=== PATIENT | female | born 1955 ===

== ENCOUNTER 2023-03-07 10:28 | Inpatient (IN) | payer MEDICAID ==
[~2023-03-07] VITALS: Ht 172.7 cm; Wt 69.1 kg
[2023-03-07 11:33] LABS: COVID AG,FIA SOURCE NASAL SWAB
[2023-03-07 11:37] LABS: ANION GAP 16 mmol/L (8-16); CALCIUM, TOTAL 10.6 mg/dL (8.8-10.5); CARBON DIOXIDE 22 mmol/L (22-29); CHLORIDE 98 mmol/L (98-107); CREATININE 1.38 mg/dL (0.60-1.30); EOSINOPHILS % (AUTO) 0.3 % (1.0-6.0); GLOMERULAR FILTR. RATE CALC 38 mL/min (>60); GLUCOSE,RANDOM 84 mg/dL (70-110); HEMATOCRIT 38.3 % (36-46); HEMOGLOBIN 12.9 g/dL (12.0-16.0); LYMPHOCYTES # (AUTO) 1.7 K/uL (1.0-4.8); LYMPHOCYTES % (AUTO) 20.2 % (22.0-44.0); MEAN CORPUSCULAR HEMOGLOBIN 29.6 pg (26.0-34.0); MEAN CORPUSCULAR HGB CONC 33.5 G/dL (31.0-37.0); MEAN CORPUSCULAR VOLUME 88 fL (80-100); MONOCYTES % (AUTO) 12.1 % (2.0-9.0); NEUTROPHILS # (AUTO) 5.7 K/uL (1.8-7.7); NEUTROPHILS % (AUTO) 66.4 % (40.0-70.0); PLATELET COUNT (AUTO) 371 K/uL (150-450); POTASSIUM 3.1 mmol/L (3.5-5.1); RED BLOOD CELL COUNT(AUTO) 4.34 MIL/uL (4.00-5.20); RED CELL DISTRIBUTION WIDTH 15.3 % (11.5-14.5); SODIUM SERUM 136 mmol/L (136-145); UREA NITROGEN, BLOOD 21 mg/dL (7-18); WHITE BLOOD COUNT (AUTO) 8.6 K/uL (4.5-11.0)
[2023-03-07 11:42] LABS: ALANINE AMINOTRANSFERASE 13 U/L (12-78); ALBUMIN 3.9 g/dL (3.4-5.0); ALKALINE PHOSPHATASE 127 U/L (46-116); ASPARTATE AMINOTRANSFERASE 27 U/L (15-37); BILIRUBIN,TOTAL 0.6 mg/dL (0.1-1.0); TOTAL PROTEIN, SERUM 7.3 g/dL (6.4-8.2)
[2023-03-07 11:53] LABS: ALCOHOL, BLOOD (SERUM) < 3 mg/dL (0-10)
[2023-03-07 12:04] LABS: SARS-COV2 (COVID) ANTIGEN,FIA Negative (Negative)
[2023-03-07] MEDS ORDERED: POTASSIUM CHLORIDE 20 MEQ ER TABLET PO ONE (12:30)
[2023-03-07 13:17] LABS: ALCOHOL, URINE DRUG SCREEN NEGATIVE (NEGATIVE); AMPHET/METH SCREEN,URINE NEGATIVE (NEGATIVE); BARBITURATE SCREEN, URINE NEGATIVE (NEGATIVE); BENZODIAZEPINES SCREEN,URINE NEGATIVE (NEGATIVE); CANNABINOID SCREEN,URINE NEGATIVE (NEGATIVE); COCAINE SCREEN,URINE NEGATIVE (NEGATIVE); METHADONE SCREEN, URINE NEGATIVE (NEGATIVE); OPIATE SCREEN,URINE NEGATIVE (NEGATIVE); PHENCYCLIDINE SCREEN,URINE NEGATIVE (NEGATIVE)
[2023-03-07 13:23] LABS: APPEARANCE,URINE CLEAR (CLEAR); BILIRUBIN,URINE NEGATIVE (NEGATIVE); COLOR,URINE YELLOW (YELLOW); GLUCOSE, URINE (UA) NEGATIVE (NEGATIVE); LEUKOCYTE ESTERASE ,URINE MODERATE (NEGATIVE); NITRATE,URINE NEGATIVE (NEGATIVE); OCCULT BLOOD,URINE NEGATIVE (NEGATIVE); PH,URINE 5.5 (5.0-8.0); PROTEIN,URINE TRACE mg/dL (NEGATIVE); SPECIFIC GRAVITIY, URINE 1.018 (1.003-1.030); UROBILINOGEN,URINE <=1.0 mg/dL (<=1.0)
[2023-03-07 13:24] LABS: PH,URINE DRUG SCREEN 5.5 (5.0-8.0)
[2023-03-07] MEDS ORDERED: QUEtiapine FUMARATE 100 MG TABLET PO PRN (13:45)
[2023-03-07 13:47] LABS: BACTERIA,URINE Few /HPF (None Seen); RBC,URINE None Seen /HPF (0-2); SQUAMOUS EPITHELIAL CELL,UR Few /LPF (None Seen)
[2023-03-07] MEDS ORDERED: CEPHALEXIN MONOHYDRATE 500 MG CAPSULE PO ONE (14:00)
[2023-03-07] MEDS: LORazepam 2 MG TABLET PO PRN (14:05)
[2023-03-07 23:11] VITALS: BP 124/64; PULSE 90; RESP 18; TEMP 97.7
[2023-03-08] MEDS ORDERED: ALBUTEROL SULFATE HFA 90 MCG/PUFF 8 GM INHALER IH PRN (07:15)
[2023-03-08] MEDS ORDERED: PETROLATUM,WHITE 28 GM JELLY TP PRN (07:15)
[2023-03-08] MEDS ORDERED: GuaiFENesin/D-METHORPHAN [SUGAR-FREE] 200-20MG/10 ML SYRUP UDCUP PO PRN (07:15)
[2023-03-08] MEDS ORDERED: DOCUSATE SODIUM 100 MG CAPSULE PO PRN (07:15)
[2023-03-08] MEDS ORDERED: CloNIDine HCL 0.1 MG TABLET PO PRN (07:15)
[2023-03-08] MEDS ORDERED: ONDANSETRON HCL 4 MG TABLET PO PRN (07:15)
[2023-03-08] MEDS ORDERED: MAGNESIUM HYDROXIDE SUSPENSION 30 ML UDCUP PO PRN (07:15)
[2023-03-08] MEDS ORDERED: ACETAMINOPHEN 325 MG TABLET PO PRN (07:15)
[2023-03-08] MEDS ORDERED: MAG HYDROX/ALUMINUM HYD/SIMETH ES 30 ML SUSPENSION UDCUP PO PRN (07:15)
[2023-03-08] MEDS ORDERED: NICOTINE 14 MG/24 HOUR PATCH TD PRN (07:15)
[2023-03-08] MEDS ORDERED: LOPERAMIDE HCL 2 MG CAPSULE PO PRN (07:15)
[2023-03-08] MEDS: CEPHALEXIN MONOHYDRATE 500 MG CAPSULE PO SCH ×3 (09:54→17:39)
[2023-03-08 10:25] VITALS: BP 106/78; PULSE 86; RESP 18; TEMP 97
[2023-03-08] MEDS: RisperiDONE 0.5 MG TABLET PO SCH (20:44)
[2023-03-08] MEDS: LORazepam 2 MG TABLET PO PRN (20:44)
[2023-03-08 23:00] VITALS: RESP 18
[2023-03-09] MEDS: CEPHALEXIN MONOHYDRATE 500 MG CAPSULE PO SCH ×3 (08:56→17:00)
[2023-03-09] MEDS: RisperiDONE 0.5 MG TABLET PO SCH ×2 (08:56→20:42)
[2023-03-09 09:58] VITALS: BP 105/70; PULSE 105; RESP 18; TEMP 97.4
[2023-03-09 22:48] VITALS: RESP 18
[2023-03-10 07:59] LABS: CHOL/HDL RATIO 6.8 (3.9-5.7)
[2023-03-10 08:03] VITALS: BP 117/70; PULSE 79; RESP 18; TEMP 97.9
[2023-03-10 08:22] LABS: THYROID STIMULATING HORMONE 0.86 uIU/mL (0.36-3.74)
[2023-03-10] MEDS: CEPHALEXIN MONOHYDRATE 500 MG CAPSULE PO SCH ×3 (10:18→18:43)
[2023-03-10] MEDS: RisperiDONE 0.5 MG TABLET PO SCH (10:20)
[2023-03-10 15:38] LABS: POTASSIUM 4.3 mmol/L (3.5-5.1)
[2023-03-10 20:30] VITALS: BP 97/60; PULSE 75; RESP 18; TEMP 97
[2023-03-10] MEDS: SIMVASTATIN 10 MG TABLET PO SCH (21:00)
[2023-03-10] MEDS: RisperiDONE 1 MG TABLET PO SCH (21:00)
[2023-03-11 08:00] VITALS: BP 109/65; PULSE 84; RESP 20; TEMP 97.4
[2023-03-11] MEDS: RisperiDONE 1 MG TABLET PO SCH ×2 (09:14→20:55)
[2023-03-11] MEDS: CEPHALEXIN MONOHYDRATE 500 MG CAPSULE PO SCH ×3 (09:14→16:23)
[2023-03-11] MEDS: SIMVASTATIN 10 MG TABLET PO SCH (20:55)
[2023-03-11] MEDS: ZOLPIDEM TARTRATE 10 MG TABLET PO PRN (21:30)
[2023-03-11 22:02] VITALS: BP 118/62; PULSE 75; RESP 18; TEMP 97.8
[2023-03-12] MEDS: RisperiDONE 1 MG TABLET PO SCH ×2 (09:03→20:40)
[2023-03-12] MEDS: CEPHALEXIN MONOHYDRATE 500 MG CAPSULE PO SCH ×3 (09:03→16:22)
[2023-03-12 18:53] VITALS: BP 115/67; PULSE 79; RESP 19; TEMP 97.6
[2023-03-12] MEDS: SIMVASTATIN 10 MG TABLET PO SCH (20:40)
[2023-03-12] MEDS: ZOLPIDEM TARTRATE 10 MG TABLET PO PRN (20:40)
[2023-03-12 22:08] VITALS: BP 153/60; PULSE 71; RESP 18; TEMP 97.8
[2023-03-13] MEDS: RisperiDONE 1 MG TABLET PO SCH ×2 (09:04→20:44)
[2023-03-13 09:41] VITALS: BP 106/63; PULSE 63; RESP 18; TEMP 97.8
[2023-03-13] MEDS: SIMVASTATIN 10 MG TABLET PO SCH (20:44)
[2023-03-13] MEDS: ZOLPIDEM TARTRATE 10 MG TABLET PO PRN (21:36)
[2023-03-13 21:55] VITALS: RESP 18
[2023-03-14] MEDS: RisperiDONE 1 MG TABLET PO SCH ×2 (08:47→21:22)
[2023-03-14 10:31] VITALS: BP 106/57; PULSE 77; RESP 16; TEMP 97.8
[2023-03-14 21:12] VITALS: BP 111/58; PULSE 64; RESP 17; TEMP 98.3
[2023-03-14] MEDS: ZOLPIDEM TARTRATE 10 MG TABLET PO PRN (21:22)
[2023-03-14] MEDS: SIMVASTATIN 10 MG TABLET PO SCH (21:22)
[2023-03-15] MEDS: RisperiDONE 1 MG TABLET PO SCH ×2 (08:44→21:43)
[2023-03-15 09:56] VITALS: BP 140/78; PULSE 81; RESP 17; TEMP 97.7
[2023-03-15 20:24] VITALS: BP 102/77; PULSE 72; RESP 18; TEMP 97.1
[2023-03-15] MEDS: ZOLPIDEM TARTRATE 10 MG TABLET PO PRN (21:20)
[2023-03-15] MEDS: SIMVASTATIN 10 MG TABLET PO SCH (21:20)
[2023-03-16 08:38] VITALS: BP 114/65; PULSE 73; RESP 16; TEMP 97.1
[2023-03-16] MEDS: RisperiDONE 1 MG TABLET PO SCH ×2 (09:32→20:53)
[2023-03-16 20:42] VITALS: BP 126/79; PULSE 79; RESP 18; TEMP 97.4
[2023-03-16] MEDS: SIMVASTATIN 10 MG TABLET PO SCH (20:52)
[2023-03-16] MEDS: ZOLPIDEM TARTRATE 10 MG TABLET PO PRN (20:53)
[2023-03-17] MEDS: RisperiDONE 1 MG TABLET PO SCH ×2 (09:45→20:46)
[2023-03-17 10:53] VITALS: BP 114/47; PULSE 76; RESP 18; TEMP 97.8
[2023-03-17] MEDS: ZOLPIDEM TARTRATE 10 MG TABLET PO PRN (20:46)
[2023-03-17] MEDS: SIMVASTATIN 10 MG TABLET PO SCH (20:46)
[2023-03-17 20:47] VITALS: BP 140/66; PULSE 75; RESP 17; TEMP 98.3
[2023-03-18 08:00] VITALS: BP 116/61; PULSE 77; RESP 17; TEMP 97.6
[2023-03-18] MEDS: RisperiDONE 1 MG TABLET PO SCH ×2 (08:31→20:59)
[2023-03-18] MEDS: ZOLPIDEM TARTRATE 10 MG TABLET PO PRN (20:59)
[2023-03-18] MEDS: SIMVASTATIN 10 MG TABLET PO SCH (20:59)
[2023-03-18 21:04] VITALS: RESP 18
[2023-03-19] MEDS: RisperiDONE 1 MG TABLET PO SCH ×2 (08:42→21:31)
[2023-03-19 09:00] VITALS: BP 120/60; PULSE 73; RESP 18; TEMP 97.7
[2023-03-19 20:45] VITALS: BP 120/63; PULSE 79; RESP 17; TEMP 98
[2023-03-19 21:00] VITALS: BP 12/63; PULSE 79; RESP 18; TEMP 98
[2023-03-19] MEDS: ZOLPIDEM TARTRATE 10 MG TABLET PO PRN (21:31)
[2023-03-19] MEDS: SIMVASTATIN 10 MG TABLET PO SCH (21:31)
[2023-03-20] MEDS: RisperiDONE 1 MG TABLET PO SCH ×2 (09:58→20:46)
[2023-03-20 10:48] VITALS: BP 118/69; PULSE 78; RESP 18; TEMP 98
[2023-03-20] MEDS: ZOLPIDEM TARTRATE 10 MG TABLET PO PRN (20:46)
[2023-03-20] MEDS: SIMVASTATIN 10 MG TABLET PO SCH (20:46)
[2023-03-20 20:58] VITALS: RESP 18
[2023-03-21] MEDS: RisperiDONE 1 MG TABLET PO SCH ×2 (08:33→21:19)
[2023-03-21 20:15] VITALS: BP 125/69; PULSE 71; RESP 18; TEMP 97.6
[2023-03-21 21:17] VITALS: BP 126/70; PULSE 72; RESP 18; TEMP 97.7
[2023-03-21] MEDS: SIMVASTATIN 10 MG TABLET PO SCH (21:19)
[2023-03-21 22:17] VITALS: RESP 18
[2023-03-22] MEDS: RisperiDONE 1 MG TABLET PO SCH ×2 (09:07→21:18)
[2023-03-22 10:04] VITALS: BP 109/57; PULSE 70; RESP 18; TEMP 97.9
[2023-03-22] MEDS: DIVALPROEX SODIUM 500 MG DR TABLET PO SCH ×2 (12:30→21:17)
[2023-03-22 20:40] VITALS: BP 110/74; PULSE 79; RESP 17; TEMP 98.5
[2023-03-22] MEDS: ZOLPIDEM TARTRATE 10 MG TABLET PO PRN (21:18)
[2023-03-22] MEDS: SIMVASTATIN 10 MG TABLET PO SCH (21:18)
[2023-03-23] MEDS: DIVALPROEX SODIUM 500 MG DR TABLET PO SCH ×2 (08:46→20:52)
[2023-03-23] MEDS: RisperiDONE 1 MG TABLET PO SCH ×2 (08:46→20:53)
[2023-03-23 09:54] VITALS: BP 112/62; PULSE 74; RESP 18; TEMP 97.5
[2023-03-23] MEDS: ZOLPIDEM TARTRATE 10 MG TABLET PO PRN (20:52)
[2023-03-23] MEDS: SIMVASTATIN 10 MG TABLET PO SCH (20:53)
[2023-03-23 22:03] VITALS: RESP 19
[2023-03-24 09:00] VITALS: BP 123/56; PULSE 78; RESP 20; TEMP 97.7
[2023-03-24] MEDS: RisperiDONE 1 MG TABLET PO SCH ×2 (09:37→21:00)
[2023-03-24 09:38] VITALS: BP 121/87; PULSE 71; RESP 17; TEMP 98
[2023-03-24] MEDS: DIVALPROEX SODIUM 500 MG DR TABLET PO SCH ×2 (09:38→21:00)
[2023-03-24] MEDS: IBUPROFEN 400 MG TABLET PO PRN (09:38)
[2023-03-24 10:38] VITALS: BP 118/78; PULSE 78; RESP 18; TEMP 97.6
[2023-03-24] MEDS: SIMVASTATIN 10 MG TABLET PO SCH (21:00)
[2023-03-24] MEDS: ZOLPIDEM TARTRATE 10 MG TABLET PO PRN (21:00)
[2023-03-24 21:16] VITALS: BP 107/69; PULSE 73; RESP 18; TEMP 97.8
[2023-03-25 08:40] VITALS: BP 99/68; PULSE 71; RESP 18; TEMP 97.8
[2023-03-25] MEDS: RisperiDONE 1 MG TABLET PO SCH ×2 (09:29→20:59)
[2023-03-25] MEDS: DIVALPROEX SODIUM 500 MG DR TABLET PO SCH ×2 (09:29→20:59)
[2023-03-25 18:41] VITALS: BP 141/76; PULSE 97; RESP 18; TEMP 98.3
[2023-03-25] MEDS: IBUPROFEN 400 MG TABLET PO PRN (18:41)
[2023-03-25 19:41] VITALS: RESP 20
[2023-03-25 20:36] VITALS: BP 101/69; PULSE 78; RESP 18; TEMP 98.1
[2023-03-25] MEDS: SIMVASTATIN 10 MG TABLET PO SCH (20:59)
[2023-03-25] MEDS: ZOLPIDEM TARTRATE 10 MG TABLET PO PRN (21:00)
[2023-03-26 07:05] VITALS: BP 128/81; PULSE 86; RESP 19; TEMP 97.2
[2023-03-26] MEDS: IBUPROFEN 400 MG TABLET PO PRN (07:09)
[2023-03-26] MEDS: DIVALPROEX SODIUM 500 MG DR TABLET PO SCH ×2 (08:38→20:59)
[2023-03-26] MEDS: RisperiDONE 1 MG TABLET PO SCH ×2 (08:39→20:58)
[2023-03-26] MEDS: SIMVASTATIN 10 MG TABLET PO SCH (20:59)
[2023-03-26 21:44] VITALS: BP 117/66; PULSE 69; RESP 18; TEMP 97.8
[2023-03-27 09:21] VITALS: BP 108/51; PULSE 76; RESP 17; TEMP 97.2
[2023-03-27] MEDS: IBUPROFEN 400 MG TABLET PO PRN (09:26)
[2023-03-27] MEDS: DIVALPROEX SODIUM 500 MG DR TABLET PO SCH ×2 (09:26→20:44)
[2023-03-27] MEDS: RisperiDONE 1 MG TABLET PO SCH ×2 (09:26→20:44)
[2023-03-27] MEDS: SIMVASTATIN 10 MG TABLET PO SCH (20:44)
[2023-03-27 21:28] VITALS: BP 139/76; PULSE 82; RESP 19; TEMP 98
[2023-03-28] MEDS: DIVALPROEX SODIUM 500 MG DR TABLET PO SCH ×2 (09:11→20:36)
[2023-03-28] MEDS: RisperiDONE 1 MG TABLET PO SCH ×2 (09:11→20:37)
[2023-03-28 10:56] VITALS: BP 127/97; PULSE 97; RESP 18; TEMP 97.7
[2023-03-28] MEDS: VALPROIC ACID 250 MG CAPSULE PO SCH ×2 (11:31→20:36)
[2023-03-28 20:26] VITALS: BP 106/69; PULSE 79; RESP 18; TEMP 97.2
[2023-03-28] MEDS: SIMVASTATIN 10 MG TABLET PO SCH (20:36)
[2023-03-29] MEDS: VALPROIC ACID 250 MG CAPSULE PO SCH ×2 (08:19→20:51)
[2023-03-29] MEDS: DIVALPROEX SODIUM 500 MG DR TABLET PO SCH ×2 (08:19→20:51)
[2023-03-29] MEDS: RisperiDONE 1 MG TABLET PO SCH ×2 (08:21→20:51)
[2023-03-29 09:22] VITALS: BP 123/80; PULSE 75; RESP 18; TEMP 97.3
[2023-03-29] MEDS: IBUPROFEN 400 MG TABLET PO PRN (09:59)
[2023-03-29 10:00] VITALS: BP 136/79; PULSE 78; RESP 18; TEMP 97.6
[2023-03-29] MEDS: SIMVASTATIN 10 MG TABLET PO SCH (20:50)
[2023-03-29 21:47] VITALS: BP 106/69; PULSE 77; RESP 19; TEMP 97.8
[2023-03-30] MEDS: VALPROIC ACID 250 MG CAPSULE PO SCH ×2 (09:00→20:52)
[2023-03-30] MEDS: RisperiDONE 1 MG TABLET PO SCH ×2 (09:00→20:52)
[2023-03-30 11:03] VITALS: BP 112/58; PULSE 71; RESP 18; TEMP 96.6
[2023-03-30] MEDS: SIMVASTATIN 10 MG TABLET PO SCH (20:52)
[2023-03-30 21:06] VITALS: BP 111/76; PULSE 81; RESP 18; TEMP 98
[2023-03-31] MEDS: VALPROIC ACID 250 MG CAPSULE PO SCH ×2 (09:14→21:04)
[2023-03-31] MEDS: RisperiDONE 1 MG TABLET PO SCH ×2 (09:15→21:05)
[2023-03-31 10:46] VITALS: BP 120/67; PULSE 70; RESP 19; TEMP 97.8
[2023-03-31] MEDS: SIMVASTATIN 10 MG TABLET PO SCH (21:05)
[2023-03-31 21:38] VITALS: BP 129/79; PULSE 17; RESP 18; TEMP 97.5
[2023-04-01] MEDS: VALPROIC ACID 250 MG CAPSULE PO SCH ×2 (08:34→20:26)
[2023-04-01] MEDS: RisperiDONE 1 MG TABLET PO SCH ×2 (08:34→20:26)
[2023-04-01 10:17] VITALS: BP 157/77; PULSE 76; RESP 19; TEMP 98
[2023-04-01] MEDS: SIMVASTATIN 10 MG TABLET PO SCH (20:26)
[2023-04-01 20:36] VITALS: BP 110/59; PULSE 76; RESP 18; TEMP 97.8
[2023-04-02] MEDS: VALPROIC ACID 250 MG CAPSULE PO SCH ×2 (10:11→20:30)
[2023-04-02] MEDS: RisperiDONE 1 MG TABLET PO SCH ×2 (10:12→20:30)
[2023-04-02 11:24] VITALS: BP 115/52; PULSE 74; RESP 18; TEMP 97.5
[2023-04-02] MEDS: SIMVASTATIN 10 MG TABLET PO SCH (20:30)
[2023-04-02] MEDS: ZOLPIDEM TARTRATE 10 MG TABLET PO PRN (21:17)
[2023-04-02 21:33] VITALS: BP 116/60; PULSE 74; RESP 18; TEMP 97.3
[2023-04-03 08:46] VITALS: BP 107/67; PULSE 73; RESP 20; TEMP 97.3
[2023-04-03] MEDS: VALPROIC ACID 250 MG CAPSULE PO SCH ×2 (10:24→20:25)
[2023-04-03] MEDS: RisperiDONE 1 MG TABLET PO SCH ×2 (10:24→20:25)
[2023-04-03] MEDS: SIMVASTATIN 10 MG TABLET PO SCH (20:25)
[2023-04-03] MEDS: ZOLPIDEM TARTRATE 10 MG TABLET PO PRN (21:26)
[2023-04-03 22:40] VITALS: BP 107/56; PULSE 80; RESP 18; TEMP 98.4
[2023-04-04 02:03] LABS: COVID AG,FIA SOURCE NASAL SWAB
[2023-04-04 03:13] LABS: SARS-COV2 (COVID) ANTIGEN,FIA Positive (Negative)
[2023-04-04] MEDS: RisperiDONE 1 MG TABLET PO SCH ×2 (08:47→20:51)
[2023-04-04] MEDS: VALPROIC ACID 250 MG CAPSULE PO SCH ×2 (08:49→20:51)
[2023-04-04 09:07] VITALS: BP 103/58; PULSE 72; RESP 18; TEMP 98.7
[2023-04-04 12:16] VITALS: TEMP 97.9
[2023-04-04 17:41] VITALS: TEMP 98.4
[2023-04-04 20:09] VITALS: BP 120/62; PULSE 79; RESP 18; TEMP 99.4
[2023-04-04] MEDS: IBUPROFEN 400 MG TABLET PO PRN (20:09)
[2023-04-04 20:10] VITALS: BP 120/62; PULSE 79; TEMP 99.4
[2023-04-04] MEDS: SIMVASTATIN 10 MG TABLET PO SCH (20:52)
[2023-04-04 21:09] VITALS: TEMP 98
[2023-04-05] VITALS (7 sets, daily range): BP systolic 93–97; BP diastolic 52–58; PULSE 76–78; RESP 17–18; TEMP 97.6–98.4
[2023-04-05] MEDS: VALPROIC ACID 250 MG CAPSULE PO SCH ×2 (09:12→21:26)
[2023-04-05] MEDS: RisperiDONE 1 MG TABLET PO SCH ×2 (09:12→21:27)
[2023-04-05] MEDS: SIMVASTATIN 10 MG TABLET PO SCH (21:27)
[2023-04-06 00:15] VITALS: TEMP 97.9
[2023-04-06 06:38] VITALS: TEMP 98.3
[2023-04-06 08:08] VITALS: BP 122/64; PULSE 78; RESP 18; TEMP 98.5
[2023-04-06] MEDS: VALPROIC ACID 250 MG CAPSULE PO SCH ×2 (09:07→20:58)
[2023-04-06] MEDS: IBUPROFEN 400 MG TABLET PO PRN (09:08)
[2023-04-06] MEDS: RisperiDONE 1 MG TABLET PO SCH ×2 (09:08→20:59)
[2023-04-06 11:55] VITALS: TEMP 98.1
[2023-04-06 16:20] VITALS: TEMP 98
[2023-04-06 20:07] VITALS: BP 133/64; PULSE 75; RESP 18; TEMP 97.9
[2023-04-06] MEDS: SIMVASTATIN 10 MG TABLET PO SCH (20:59)
[2023-04-06] MEDS: ZOLPIDEM TARTRATE 10 MG TABLET PO PRN (21:00)
[2023-04-07] VITALS (7 sets, daily range): BP systolic 95–116; BP diastolic 45–78; PULSE 69–84; RESP 17–18; TEMP 97.5–98.7
[2023-04-07] MEDS: RisperiDONE 1 MG TABLET PO SCH ×2 (10:34→21:08)
[2023-04-07] MEDS: IBUPROFEN 400 MG TABLET PO PRN ×2 (10:34→21:10)
[2023-04-07] MEDS: VALPROIC ACID 250 MG CAPSULE PO SCH ×2 (10:36→21:07)
[2023-04-07] MEDS: SIMVASTATIN 10 MG TABLET PO SCH (21:08)
[2023-04-07] MEDS: ZOLPIDEM TARTRATE 10 MG TABLET PO PRN (21:10)
[2023-04-08 00:02] VITALS: RESP 17; TEMP 97.8
[2023-04-08 04:29] VITALS: RESP 18; TEMP 97.7
[2023-04-08] MEDS: VALPROIC ACID 250 MG CAPSULE PO SCH ×2 (08:16→21:05)
[2023-04-08] MEDS: RisperiDONE 1 MG TABLET PO SCH ×2 (08:16→21:05)
[2023-04-08 08:19] VITALS: BP 125/54; PULSE 66; RESP 17; TEMP 97.3
[2023-04-08] MEDS ORDERED: INFLUENZA VIRUS VACCINE QVS 2023-24 (6MO+)/PF 60 MCG/0.5 ML SYRINGE IM. ONE (11:15)
[2023-04-08 12:51] VITALS: RESP 18; TEMP 98.6
[2023-04-08 16:00] VITALS: RESP 18; TEMP 97.5
[2023-04-08 20:13] VITALS: BP 116/62; PULSE 85; RESP 18; TEMP 97.2
[2023-04-08] MEDS: ZOLPIDEM TARTRATE 10 MG TABLET PO PRN (21:05)
[2023-04-08] MEDS: SIMVASTATIN 10 MG TABLET PO SCH (21:05)
[2023-04-09] VITALS (7 sets, daily range): BP systolic 108–109; BP diastolic 58–65; PULSE 65–85; RESP 16–18; TEMP 97–97.8
[2023-04-09] MEDS: VALPROIC ACID 250 MG CAPSULE PO SCH ×2 (08:53→21:08)
[2023-04-09] MEDS: RisperiDONE 1 MG TABLET PO SCH ×2 (08:53→21:08)
[2023-04-09] MEDS: ZOLPIDEM TARTRATE 10 MG TABLET PO PRN (21:08)
[2023-04-09] MEDS: SIMVASTATIN 10 MG TABLET PO SCH (21:08)
[2023-04-10 00:05] VITALS: RESP 18
[2023-04-10 04:44] VITALS: RESP 18
[2023-04-10 08:06] VITALS: BP 104/61; PULSE 60; RESP 18; TEMP 97.7
[2023-04-10] MEDS: RisperiDONE 1 MG TABLET PO SCH ×2 (09:38→20:39)
[2023-04-10] MEDS: VALPROIC ACID 250 MG CAPSULE PO SCH ×2 (09:39→20:38)
[2023-04-10 13:09] VITALS: RESP 18; TEMP 98.3
[2023-04-10 16:12] VITALS: RESP 18; TEMP 97.5
[2023-04-10 20:16] VITALS: BP 105/65; PULSE 61; RESP 16; TEMP 97.2
[2023-04-10] MEDS: SIMVASTATIN 10 MG TABLET PO SCH (20:38)
[2023-04-10] MEDS: ZOLPIDEM TARTRATE 10 MG TABLET PO PRN (20:39)
[2023-04-11 00:08] VITALS: RESP 18
[2023-04-11 04:29] VITALS: RESP 16
[2023-04-11 08:18] VITALS: BP 104/62; PULSE 73; RESP 17; TEMP 97.5
[2023-04-11] MEDS: RisperiDONE 1 MG TABLET PO SCH ×2 (10:01→21:00)
[2023-04-11] MEDS: VALPROIC ACID 250 MG CAPSULE PO SCH ×2 (10:01→21:00)
[2023-04-11 13:26] VITALS: RESP 18; TEMP 97.5
[2023-04-11 18:12] VITALS: RESP 18; TEMP 97.6
[2023-04-11 20:04] VITALS: BP 107/66; PULSE 76; RESP 18; TEMP 97.4
[2023-04-11] MEDS: SIMVASTATIN 10 MG TABLET PO SCH (21:00)
[2023-04-11] MEDS: ZOLPIDEM TARTRATE 10 MG TABLET PO PRN (21:00)
[2023-04-12 00:01] VITALS: RESP 18
[2023-04-12 04:05] VITALS: RESP 18
[2023-04-12] MEDS: RisperiDONE 1 MG TABLET PO SCH ×2 (08:29→20:10)
[2023-04-12] MEDS: VALPROIC ACID 250 MG CAPSULE PO SCH ×2 (08:29→20:10)
[2023-04-12 08:57] VITALS: BP 106/54; PULSE 61; RESP 18; TEMP 97.5
[2023-04-12 12:00] VITALS: RESP 18; TEMP 97.3
[2023-04-12 16:00] VITALS: RESP 16; TEMP 97.5
[2023-04-12] MEDS: SIMVASTATIN 10 MG TABLET PO SCH (20:10)
[2023-04-12 20:11] VITALS: BP 110/70; PULSE 81; RESP 17; TEMP 97.7
[2023-04-12] MEDS: ZOLPIDEM TARTRATE 10 MG TABLET PO PRN (22:36)
[2023-04-13 00:52] VITALS: RESP 18
[2023-04-13 05:03] VITALS: RESP 18
[2023-04-13 08:02] VITALS: BP 115/82; PULSE 82; RESP 18; TEMP 97.1
[2023-04-13] MEDS: VALPROIC ACID 250 MG CAPSULE PO SCH ×2 (09:04→21:25)
[2023-04-13] MEDS: RisperiDONE 1 MG TABLET PO SCH ×2 (09:04→21:25)
[2023-04-13 14:04] VITALS: BP 115/76; PULSE 90; RESP 18; TEMP 97.1
[2023-04-13 17:43] VITALS: BP 134/66; PULSE 83; RESP 20; TEMP 97.1
[2023-04-13 20:30] VITALS: BP 125/82; PULSE 84; RESP 18; TEMP 97.3
[2023-04-13] MEDS: SIMVASTATIN 10 MG TABLET PO SCH (21:25)
[2023-04-13] MEDS: ZOLPIDEM TARTRATE 10 MG TABLET PO PRN (21:26)
[2023-04-14] VITALS (7 sets, daily range): BP systolic 101–132; BP diastolic 64–72; PULSE 74–82; RESP 17–18; TEMP 96.9–97.4
[2023-04-14] MEDS: RisperiDONE 1 MG TABLET PO SCH ×2 (09:20→20:52)
[2023-04-14] MEDS: VALPROIC ACID 250 MG CAPSULE PO SCH ×2 (09:20→20:53)
[2023-04-14] MEDS: SIMVASTATIN 10 MG TABLET PO SCH (20:52)
[2023-04-14] MEDS: ZOLPIDEM TARTRATE 10 MG TABLET PO PRN (21:21)
[2023-04-15 00:05] VITALS: RESP 18; TEMP 97.6
[2023-04-15 05:32] VITALS: RESP 18; TEMP 97.4
[2023-04-15 06:22] LABS: BASOPHILS % (AUTO) 0.6 % (0.0-2.0); EOSINOPHILS % (AUTO) 1.8 % (1.0-6.0); HEMATOCRIT 38.2 % (36-46); HEMOGLOBIN 12.6 g/dL (12.0-16.0); LYMPHOCYTES # (AUTO) 2.4 K/uL (1.0-4.8); LYMPHOCYTES % (AUTO) 23.4 % (22.0-44.0); MEAN CORPUSCULAR HEMOGLOBIN 29.4 pg (26.0-34.0); MEAN CORPUSCULAR HGB CONC 32.9 G/dL (31.0-37.0); MEAN CORPUSCULAR VOLUME 89 fL (80-100); MONOCYTES # (AUTO) 1.9 K/uL (0.1-1.0); MONOCYTES % (AUTO) 19.3 % (2.0-9.0); NEUTROPHILS # (AUTO) 5.5 K/uL (1.8-7.7); NEUTROPHILS % (AUTO) 54.9 % (40.0-70.0); PLATELET COUNT (AUTO) 227 K/uL (150-450); RED BLOOD CELL COUNT(AUTO) 4.28 MIL/uL (4.00-5.20); RED CELL DISTRIBUTION WIDTH 15.2 % (11.5-14.5); WHITE BLOOD COUNT (AUTO) 10.1 K/uL (4.5-11.0)
[2023-04-15 06:32] LABS: ANION GAP 5 mmol/L (8-16); CALCIUM, TOTAL 9.1 mg/dL (8.8-10.5); CARBON DIOXIDE 29 mmol/L (22-29); CHLORIDE 102 mmol/L (98-107); GLOMERULAR FILTR. RATE CALC > 60 mL/min (>60); GLUCOSE,RANDOM 82 mg/dL (70-110); POTASSIUM 4.3 mmol/L (3.5-5.1); SODIUM SERUM 136 mmol/L (136-145); UREA NITROGEN, BLOOD 17 mg/dL (7-18)
[2023-04-15] MEDS: RisperiDONE 1 MG TABLET PO SCH ×2 (09:26→20:52)
[2023-04-15] MEDS: VALPROIC ACID 250 MG CAPSULE PO SCH ×2 (09:26→20:53)
[2023-04-15 10:13] LABS: COVID AG,FIA SOURCE NASAL SWAB
[2023-04-15 10:36] LABS: SARS-COV2 (COVID) ANTIGEN,FIA Negative (Negative)
[2023-04-15 11:53] VITALS: BP 100/58; PULSE 70; RESP 16; TEMP 97
[2023-04-15 12:00] VITALS: TEMP 98
[2023-04-15 16:04] VITALS: TEMP 98
[2023-04-15 20:15] VITALS: BP 96/61; PULSE 80; RESP 18; TEMP 98
[2023-04-15] MEDS: SIMVASTATIN 10 MG TABLET PO SCH (20:53)
[2023-04-15] MEDS: ZOLPIDEM TARTRATE 10 MG TABLET PO PRN (21:14)
[2023-04-16 04:44] VITALS: RESP 18; TEMP 97.8
[2023-04-16] MEDS ORDERED: RISP2TAB86 PO (08:49)
[2023-04-16] MEDS ORDERED: DIVA-112 PO (08:49)
[2023-04-16] MEDS ORDERED: SIMV10TA97 PO (08:49)
[2023-04-16] MEDS: RisperiDONE 1 MG TABLET PO SCH (09:46)
[2023-04-16] MEDS: VALPROIC ACID 250 MG CAPSULE PO SCH (09:47)
[2023-04-16 09:48] LABS: COVID AG,FIA SOURCE NASAL SWAB
[2023-04-16 10:26] LABS: SARS-COV2 (COVID) ANTIGEN,FIA Negative (Negative)
[2023-04-16 12:17] VITALS: BP 116/81; PULSE 93; RESP 16; TEMP 97.9
[2023-04-16 14:17] VITALS: BP 116/81; PULSE 93; RESP 16; TEMP 97.9
[2023-04-16] MEDS: IBUPROFEN 400 MG TABLET PO PRN (14:17)
== END 2023-04-16 15:15 | disposition home or self-care (01) | DRG 750 ==
LOC: EMS 10:32 → 3EI 20:18
PROVIDERS: ADMIT Psychiatry & Neurology Psychiatry; ATTEND Psychiatry & Neurology Psychiatry
DX: F20.0 Paranoid schizophrenia (principal); N17.9 Acute kidney failure, unspecified; F29 Unspecified psychosis not due to a substance or known physiological condition; E78.5 Hyperlipidemia, unspecified; N39.0 Urinary tract infection, site not specified; E87.6 Hypokalemia; J45.909 Unspecified asthma, uncomplicated; M19.90 Unspecified osteoarthritis, unspecified site; Z20.822 Contact with and (suspected) exposure to COVID-19; Z79.899 Other long term (current) drug therapy
CPT/HCPCS: 70450; 72125; 80048; 80053; 80061; 80164; 80307; 81001; 83036; 84132; 84443; 85025; 87086; 87186; 99285; G0480